=== PATIENT | male | born 1985 | race African-American/Black ===

== ENCOUNTER 2017-09-28 14:53 | Emergency (ER) | payer SELFPAY ==
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
[2017-09-28 15:07] VITALS: BP 101/76; PULSE 72; TEMP 97.8; BMI 23.0
[2017-09-28] MEDS ORDERED: DIPHTH,PERTUSS(ACELL),TET 0.5 ML DISP.SYRIN IM ONE (15:51)
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
== END 2017-09-28 16:06 | disposition home or self-care (01) ==
LOC: JERFT 14:53 → JER 14:53 → JERFT 16:06
PROC: 0RSXXZZ Reposition Left Finger Phalangeal Joint, External Approach (ICD-10-PCS; principal; 2017-09-28)
PROC: 3E0234Z Introduction of Serum, Toxoid and Vaccine into Muscle, Percutaneous Approach (ICD-10-PCS; 2017-09-28)
DX: S63.297A Dislocation of distal interphalangeal joint of left little finger, initial encounter (principal); S60.222A Contusion of left hand, initial encounter; S60.512A Abrasion of left hand, initial encounter; Y04.0XXA Assault by unarmed brawl or fight, initial encounter; Y93.89 Activity, other specified; Y92.89 Other specified places as the place of occurrence of the external cause; Y99.8 Other external cause status; F17.210 Nicotine dependence, cigarettes, uncomplicated
CPT/HCPCS: 73130-TC-LR-FY; 90715; 99281-25

== ENCOUNTER 2018-04-23 16:57 | Emergency (ER) | payer SELFPAY ==
[2018-04-23 17:08] VITALS: BP 120/77; PULSE 83; TEMP 98.2; BMI 22.3
--- NOTE | 2018-04-23 17:34 | PDOC ---
History of Present Illness - General Chief Complaint: Palpitations Stated Complaint: CHEST PAIN Time Seen by Provider: 04/23/18 17:20 History Source: Patient Exam Limitations: No Limitations - History of Present Illness Initial Comments: 04/23/18 19:25 Patient is a 32-year-old male with no past medical history who presents to the emergency department today for palpitations for 2 weeks. Patient states that he intermittently has palpitations where he feels his heart skip a beat. Patient also endorses using male enhancement drugs that are [id number]. Denies fevers, chills, chest pain, difficulty breathing, shortness of breath, dyspnea on exertion, lightheadedness, dizziness, nausea, vomiting and diarrhea. Past History - Travel Traveled outside of the country in the last 30 days: No Close contact w/someone who was outside of country & ill: No - Past Medical History Allergies/Adverse Reactions: Allergies Allergy/AdvReac Type Severity Reaction Status Date / Time No Known Allergies Allergy Verified 04/23/18 17:02 Home Medications: Ambulatory Orders Amox-Tr/K Cl [Augmentin - 875Mg Tablet] 1 tab PO BID #14 tablet 09/28/17 Fluticasone Prop 0.05% Nasal [Flonase -] 1 - 2 spray NS DAILY #1 spray.pump COPD: No - Suicide/Smoking/Psychosocial Hx Smoking History: Current every day smoker Have you smoked in the past 12 months: Yes Number of Cigarettes Smoked Daily: 20 Information on smoking cessation initiated: Yes 'Breaking Loose' booklet given: 04/23/18 Hx Alcohol Use: Yes (DAILY) Drug/Substance Use Hx: Yes (PATY) Substance Use Type: Alcohol, Marijuana Review of Systems - Review of Systems Able to Perform ROS?: Yes Comments:: 04/23/18 19:25 CONSTITUTIONAL: Absent: fever, chills, diaphoresis, generalized weakness, malaise, loss of appetite HEENT: Absent: rhinorrhea, nasal congestion, throat pain, throat swelling, difficulty swallowing, mouth swelling, ear pain, eye pain, visual Changes CARDIOVASCULAR: Present: palpitations Absent: chest pain, loss of consciousness, irregular heart rate, peripheral edema RESPIRATORY: Absent: cough, shortness of breath, dyspnea with exertion, orthopnea, wheezing, stridor, hemoptysis GASTROINTESTINAL: Absent: abdominal pain, abdominal distension, nausea, vomiting, diarrhea, constipation, melena, hematochezia GENITOURINARY: Absent: dysuria, frequency, urgency, hesitancy, hematuria, flank pain, genital pain MUSCULOSKELETAL: Absent: myalgia, arthralgia, joint swelling SKIN: Absent: rash, itching, pallor HEMATOLOGIC/IMMUNOLOGIC: Absent: easy bleeding, easy bruising, lymphadenopathy, frequent infections ENDOCRINE: Absent: unexplained weight gain, unexplained weight loss, heat intolerance, cold intolerance NEUROLOGIC: Absent: headache, focal weakness or paresthesias, dizziness, unsteady gait, seizure, mental status changes, bladder or bowel incontinence PSYCHIATRIC: Absent: anxiety, depression, suicidal or homicidal ideation, hallucinations. Is the patient limited Swedish proficient: No *Physical Exam - Vital Signs Last Vital Signs Temp Pulse Resp BP Pulse Ox 98.2 F 83 18 120/77 100 04/23/18 17:02 04/23/18 17:02 04/23/18 17:02 04/23/18 17:02 04/23/18 17:02 - Physical Exam Comments: 04/23/18 19:25 GENERAL: Well developed, well nourished. Awake and alert. No acute distress. HEENT: Normocephalic, atraumatic. PERRLA, EOMI. No conjunctival pallor. Sclera are non- icteric. Moist mucous membranes. Oropharynx is clear. NECK: Supple. Full ROM. No JVD. Carotid pulses 2+ and symmetric, without bruits. No thyromegaly. No lymphadenopathy. CARDIOVASCULAR: Regular rate and rhythm. No murmurs, rubs, or gallops. Distal pulses are 2+ and symmetric. PULMONARY: No evidence of respiratory distress. Lungs clear to auscultation bilaterally. No wheezing, rales or rhonchi. ABDOMINAL: Soft. Non-tender. Non-distended. No rebound or guarding. No organomegaly. Normoactive bowel sounds. MUSCULOSKELETAL Normal range of motion at all joints. No bony deformities or tenderness. No CVA tenderness. EXTREMITIES: No cyanosis. No clubbing. No edema. No calf tenderness. SKIN: Warm and dry. Normal capillary refill. No rashes. No jaundice. NEUROLOGICAL: Alert, awake, appropriate. Cranial nerves 2-12 intact. No deficits to light touch and temperature in face, upper extremities and lower extremities. No motor deficits in the in face, upper extremities and lower extremities. Normoreflexic in the upper and lower extremities. Normal speech. Toes are down- going bilaterally. Gait is normal without ataxia. PSYCHIATRIC: Cooperative. Good eye contact. Appropriate mood and affect. ED Treatment Course - LABORATORY CBC & Chemistry Diagram: 04/23/18 17:25 04/23/18 17:25 Medical Decision Making - Medical Decision Making 04/23/18 19:27 Patient is a 32-year-old male with no past medical history who presents to the emergency department today for intermittent palpitations for the last 2 weeks. -On exam patient with normal cardiac sounds, no murmurs rubs or gallops. -EKG shows normal sinus rhythm at a rate of 74 bpm with sinus arrhythmia. Normal axis, normal intervals, no acute ST-T wave changes. -Troponins are negative -Electrolytes within normal limits. No leukocytosis or shift. -U tox positive for marijuana. -Instructed patient to stop taking male enhancement drugs as they might be causing his palpitations. Also advised to stop smoking marijuana. -Pt is chest pain free at this time -Patient has an appointment with her primary care doctor on Wednesday. -Cardiology referral given. Discharge home -I discussed the physical exam findings, ancillary test results and final diagnoses with the patient. I answered all of the patient's questions. The patient was satisfied with the care received and felt comfortable with the discharge plan and treatment plan. The Patient agrees to follow up with the primary care physician/specialist within 24-72 hours. Return precautions were given. *DC/Admit/Observation/Transfer Diagnosis at time of Disposition: Palpitations - Discharge Dispostion Disposition: HOME Condition at time of disposition: Stable Decision to Admit order: No - Prescriptions Prescriptions: Fluticasone Prop 0.05% Nasal [Flonase -] 1 - 2 spray NS DAILY #1 spray.pump - Referrals Referrals: Ras Astorga MD [Staff Physician] - Jesus Bauer MD [Staff Physician] - - Patient Instructions Printed Discharge Instructions: DI for Palpitations Additional Instructions: Your workup was normal today. Your EKG and lab work were normal. You most likely have palpitations. Please follow-up with your primary care doctor on Wednesday as planned. Cardiology referral has also been provided. Return to the emergency department if you have worsening palpitations, chest pain, dizziness, or if you have any changes in your symptoms. - Post Discharge Activity
[2018-04-23 17:41] LABS: BASO % 0.8 % (0-2.0); EOS % 1.7 % (0-4.5); HEMATOCRIT 44.8 % (35.4-49); LYMPH % 33.5 % (8-40); MCH 30.9 pg (25.7-33.7); MCHC 33.5 g/dl (32.0-35.9); PLATELET COUNT 185 K/MM3 (134-434); RBC 4.87 M/mm3 (4.00-5.60); RDW 13.4 % (11.9-15.9); WHITE BLOOD COUNT 7.1 K/mm3 (4.0-10.0)
[2018-04-23 17:43] LABS: URINE APPEARANCE CLEAR; URINE BILIRUBIN NEGATIVE (<2.0 mg/dL); URINE COLOR YELLOW; URINE GLUCOSE (UA) NEGATIVE (NEGATIVE); URINE KETONE NEGATIVE (NEGATIVE); URINE LEUK ESTERASE NEGATIVE (NEGATIVE); URINE NITRITE NEGATIVE (NEGATIVE); URINE PROTEIN NEGATIVE (NEGATIVE)
[2018-04-23 17:55] LABS: COCAINE, UR NEGATIVE ng/ml (CUTOFF=300); METHADONE, UR NEGATIVE ng/ml (CUTOFF=300); OPIATES, URI NEGATIVE ng/ml (CUTOFF=300); PHENCYCLIDINE,URINE NEGATIVE ng/ml (CUTOFF=25); URINE AMPHETAMINES NEGATIVE ng/ml (CUTOFF=500); URINE BARBITURATES NEGATIVE ng/ml (CUTOFF=200); URINE BENZODIAZEPINES NEGATIVE ng/ml (CUTOFF=200)
[2018-04-23 18:08] LABS: ALBUMIN 4.3 g/dl (3.4-5.0); ALK PHOS 84 U/L (45-117); ANION GAP 7 MMOL/L (8-16); BILIRUBIN,TOTAL 0.7 mg/dL (0.2-1); BLOOD UREA NITROGEN 11 mg/dL (7-18); CALCIUM 8.6 mg/dL (8.5-10.1); CHLORIDE 106 mmol/L (98-107); CO2 29 mmol/L (21-32); CREATININE 1.1 mg/dL (0.55-1.3); GLUCOSE,RANDOM 79 mg/dL (74-106); POTASSIUM 4.2 mmol/L (3.5-5.1); SGOT/AST 21 U/L (15-37); SGPT/ALT 24 U/L (13-61); SODIUM 142 mmol/L (136-145); TOT PROT 7.5 g/dl (6.4-8.2)
--- NOTE | 2018-04-24 14:01 | EKG ---
Test Reason : Blood Pressure : / mmHG Vent. Rate : 074 BPM Atrial Rate : 074 BPM P-R Int : 152 ms QRS Dur : 096 ms QT Int : 394 ms P-R-T Axes : 068 072 064 degrees QTc Int : 437 ms NORMAL SINUS RHYTHM WITH SINUS ARRHYTHMIA POSSIBLE LEFT ATRIAL ENLARGEMENT BORDERLINE ECG NO PREVIOUS ECGS AVAILABLE Confirmed by MD Coello Edward ([id number]) on 04/24/2018 2:01:12 PM Referred By: Confirmed By:Mingo Coello MD
== END 2018-04-23 18:40 | disposition home or self-care (01) ==
LOC: JERFT 16:57 → JER 16:57 → JERFT 18:40
DX: R07.9 Chest pain, unspecified (principal)
CPT/HCPCS: 36415; 80053; 80307; 81003; 82550; 84484; 85025; 93005; 93010; 99281-25